=== PATIENT | female | born 1995 | race Caucasian/White ===

== ENCOUNTER 2018-08-06 12:54 | Emergency (ER) | payer SELFPAY ==
[~2018-08-06] VITALS: Ht 175.3 cm; Wt 61.2 kg
[2018-08-06 13:46] VITALS: Ht 175.3 cm; Wt 61.2 kg
[2018-08-06 14:12] LABS: microscopic required? NO
[2018-08-06 14:18] LABS: UA SPECIFIC GRAVITY 1.015 (1.005-1.035); urine erythrocyte NEGATIVE (NEGATIVE)
[2018-08-06 14:37] LABS: BASOPHIL % 0.5 % (0-2); PLATELET COUNT 242 x10^3mcL (130-400); RED CELL DISTRIBUTION WIDTH 13.5 % (11.5-14.5)
[2018-08-06 15:08] LABS: CALCIUM 8.8 mg/dL (8.5-10.1); CARBON DIOXIDE 22.9 mmol/L (21-32); CHLORIDE SERUM 104 mmol/L (98-107); CREATININE SERUM 0.6 mg/dL (0.6-1.0); GFR1 > 60 mL/min; GLUCOSE SERUM 105 mg/dL (74-106); POTASSIUM SERUM 3.6 mmol/L (3.5-5.1); SODIUM SERUM 138 mmol/L (136-145)
[2018-08-06 15:19] LABS: ALBUMIN 3.5 g/dL (3.4-5.0); ALKALINE PHOSPHATASE 31 U/L (46-116); ALT/SGPT 22 U/L (14-59); AMYLASE 64 U/L (25-115); AST/SGOT 17 U/L (15-37); BILIRUBIN TOTAL 0.3 mg/dL (0.20-1.00); LIPASE 136 IU/L (73-393); TOTAL PROTEIN, SERUM 7.4 g/dL (6.4-8.2)
[2018-08-06 17:18] VITALS: BP 115/68
== END 2018-08-06 17:18 | disposition home or self-care (01) ==
LOC: ED 12:54
PROVIDERS: Specialist
DX: N83.201 Unspecified ovarian cyst, right side (principal)
CPT/HCPCS: 36415; Q0092